=== PATIENT | male | born 1995 | race Caucasian/White ===

== ENCOUNTER 2017-08-30 12:32 | Inpatient (IN) | payer MEDICAID, SELFPAY ==
[2017-08-30 12:58] VITALS: BP 122/68; PULSE 89; RESP 16; TEMP 35.8; O2SAT 98
[2017-08-30 13:00] VITALS: BMI 24.1; BMI 24.5
--- NOTE | 2017-08-30 13:31 | NURSING ---
AWAITING ORDERS FROM DR BOWER WHO IS ADMITTING HOSPITALIST PT GIVEN MILLY, SHELIA AND ENCOURAGED TO ORDER FOOD FOR LUNCH PT IS A&O X3
--- NOTE | 2017-08-30 13:34 | HP.PCM_ITS ---
Problem List (1) Heroin addiction Status: Chronic (2) Opiate withdrawal Status: Acute (3) Hypercalcemia Status: Chronic (4) Cigarette smoker Status: Chronic History of Present Illness Date of Admission: 08/30/17 Chief Complaint: sweating, nausea, restlessness The patient is a 22 year old M with a past medical history of intravenous heroin use who presented to the [facility] office at [facility] on 08/30/2017 requesting inpatient admission for acute opiate withdrawal. He states his last dose of heroin was on 08/29/2017 at approximately 11 AM. He uses 1-1.5 GM IV daily. He denies any hx of Hepatitis. Has been to detox twice in the past. The most recent was at [facility] in 2017. He is living with his parents. He tells me that he is planning on attending an inpt program at [place]. He is having restlessness, Nausea and abdominal cramping. He is being admitted to the hospital for medical stabilization for withdrawal from Heroin. Past Medical History Past Medical History (Chronic Problems): Chronic Problems Thyroid nodule (Chronic) Hyperthyroidism (Chronic) Heroin addiction (Chronic) Hypercalcemia (Chronic) Cigarette smoker (Chronic) Allergies quetiapine [From Seroquel] Adverse Reaction (Verified 08/30/17 12:54) Other restless legs Home Medications: Ambulatory Orders Medication Instructions Recorded Cinacalcet HCl [Sensipar] 30 mg PO BIDCM #60 tab 09/02/17 Ergocalciferol [Vitamin D] 50,000 unit PO Q7D #12 cap 09/02/17 Surgical History: noncontributory Psychiatric History: No pertinent psych hx Lives: With Family Smoking Status: Current some day smoker Tobacco Use: Cigarettes - 1-2 daily Alcohol: Occasional Drugs: Heroin - *Family History Maternal History Items: - - mother has a hx of thyroid disease and drug addiction Paternal History Items: - - father with a hx of drug abuse Review of Systems Constitutional: Reports: Anorexia. Denies: Chills Eyes: Denies: Blurred vision HEENT: Denies: Head Aches, Sinus Congestion, Sinus Drainage Cardiovascular: Denies: Chest Pain, Palpitations Respiratory: Denies: Cough, Shortness of breath at rest, Sputum production Gastrointestinal: Reports: Nausea, - - dry heaves. Denies: Abdominal Pain, Constipation, Diarrhea, Vomiting Genitourinary: Denies: Dysuria Musculoskeletal: Denies: Joint Pain, Joint Tenderness Skin: Reports: - - multiple track kelley....none appear to be infected. Denies: Jaundice, Rash, Wounds Neurological: Denies: Numbness, Tingling, Focal weakness Psychiatric: Denies: Anxiety, Depression, Homicidal Ideations, Suicidal Ideations Endocrine: Denies: Change in Body Habitus, Heat/ Cold Intolerance, Hx of Thyroiditis Hematologic/ Lymphatic: Denies: Hx of blood clot VTE Information - Inpt Only VTE Present on Admission: No VTE Mechan Device Prophylaxis: None VTE Pharm Prophylaxis ordered?: No Reason prophylaxis not ordered:: Treatment Not Indicated - Physical Exam General: Alert, Oriented x3, Cooperative, No apparent distress, Well developed, Well nourished, - - does not make good eye contact HEENT: Atraumatic, PERRLA, EOMI Oral: Moist Mucosa, No Gingival or Mucosal Lesions/ Ulcerations Neck: Supple, No JVD, Trachea Midline, Thyroid Normal Size and Texture Lungs: Clear to auscultation Cardiovascular: Regular rate, Regular Rhythm, Normal S1, Normal S2, No murmurs, No Ectopic Activity, No Gallop Abdomen: Bowel Sounds Present, Soft, Non Tender, Non-Distended Extremities: No clubbing, No cyanosis, No edema Skin: No rashes, - - no evidence of cellulitis of the multiple track kelley Musculoskeletal: No Muscle Wasting Neurological: Cranial nerves II-XII grossly intact, Neuro grossly intact, - - no hypereflexia Psych/Mental Status: Appropriate, Flat Affect Vital Signs Temp Pulse Resp BP Pulse Ox 96.5 F L 89 16 122/68 H 98 08/30/17 12:58 08/30/17 12:58 08/30/17 12:58 08/30/17 12:58 08/30/17 12:58 Oxygen Delivery Method Room Air Weight: 173 lb Body Mass Index (BMI) 24.1 Assessment/Plan Impressions 1. acute opiate withdrawal 2. Hypercalcemia - has never been worked up 3. occasional cigarette smoker The [facility] protocol for acute withdrawal from opiates has been initiated. Check a PTH, TSH, 24 hour urine calcium and a 25 hydroxy vitamin D level. CMP, CBC, hepatitis panel, HIV and urine tox screen
[2017-08-30 14:00] VITALS: PULSE 88; RESP 20; TEMP 36.7
[2017-08-30 14:33] LABS: Absolute Lymphocyte Count 1.49 X10^3/ul (0.83-4.51); Absolute Neutrophil Count 6.3 X10^3/uL (2.0-7.7); Basophil# 0.03 X10^3/uL; Basophil% 0.4 % (0-1); Eosinophil# 0.06 X10^3/uL; Eosinophils% 0.7 % (0-5); Hematocrit 46.1 % (40-54); Hemoglobin 15.9 g/dl (13.0-16.5); Lymphocyte # 1.49 X10^3/ul (4.0); Mean Corp Hgb Conc 34.5 g/gl (32-36); Mean Corpuscular Hgb 28.7 pg (27.0-32.0); Mean Corpuscular Volume 83.2 fL (80-94); Mean Platelet Vol. 9.5 fl (6.2-12.0); Monocyte# 0.33 X10^3/uL; Neutrophil # 6.33 X10^3/uL (2.7-7.7); Neutrophil % 76.5 % (47-70); Platelet Count 275 K/mm3 (150-450); RBC Distribution Width CV 13.9 % (11.6-14.6); RBC Distribution Width SD 42.4 fl (35.1-43.9); Red Blood Count 5.54 M/mm3 (4.6-6.2); White Blood Count 8.3 K/mm3 (4.4-11.0)
[2017-08-30] MEDS: cloNIDine HCl 0.1 MG Tablet PO ×2 (14:41→18:47)
[2017-08-30] MEDS: Buprenorphine HCl 2 MG TAB.SUBL SL ×2 (14:41→22:19)
[2017-08-30] MEDS: Dicyclomine 10 MG Capsule 20 MG PO (14:41)
[2017-08-30 14:42] LABS: POSITIVE COUNT NO; POSITIVE DIFFERENTIAL NO; POSITIVE MORPHOLOGY NO
[2017-08-30 15:29] LABS: ALB/GLOB Ratio 0.9 RATIO (0.9-2.4); AST(SGOT) 20 U/L (15-37); Alanine Aminotransfer ALT/SGPT 39 U/L (16-61); Alkaline Phosphatase 118 U/L (45-117); BUN 10 mg/dL (7-18); BUN/Creat Ratio 11.3 RATIO (10-20); Calcium,Total 12.7 mg/dL (8.5-10.1); Chloride 104 mmol/L (98-107); Creatinine, Serum 0.88 mg/dL (0.70-1.30); EST Glomerular Filtration Rate 114 mL/min (>60); Est Glom Filt Rate - Afr Amer 138 mL/min (>60); Estimated Creatinine Clearance 140.24 ml/min; Globulin 4.6 g/dL (2.2-4.2); Glucose 110 mg/dL (74-106); Potassium 4.4 mmol/L (3.5-5.1); Protein, Total 8.6 g/dL (6.4-8.2); Sodium Level 136 mmol/L (136-145)
[2017-08-30 15:30] LABS: Alcohol, Blood (Medical)-Serum < 3.0 mg/dL; Anion Gap 8 (5-15)
--- NOTE | 2017-08-30 15:35 | CHAPLAIN ---
Type of Pastoral Visit _x__ Initial Visit ___ Follow-up Visit ___ On-call Visit ___ General Patient Visit ___ Spiritual Assessment ___ Family Conference ___ Bereavement ___ Rapid Response ___ Code Blue ___ Other (describe below) Pastoral Care Referral From _x__ Patient ___ Family ___ Nurse ___ Physician ___ Rubber Cutter ___ Safety Deposit Clerk ___ Other (describe below) Sacrament/Intervention _x__ Active listening ___ Anointing ___ Restorationist ___ Bereavement ___ Communion ___ Suzy exploration ___ _x__ Life review _x__ Prayer ___ Reconciliation ___ Sacrament of Sick _x__ Supportive presence ___ Wedding ___ Other (describe below) Pastoral Comments parents of patient have been admitted here in previous months and also for addictions; have met with parents during their admission; pt says that he needs to get clean but worries that he won't be able to stay clean; as we talked, pt had low affect until we talked about his girlfriend; pt become very tearful at mention of girlfriend who is in rehab now for the next eight months; pt used to have a job that he loved but is no longer working; pt welcomes visits from campus aide
[2017-08-30 16:02] LABS: HIV - WCH Non-Reactive (Nonreactive)
--- NOTE | 2017-08-30 16:47 | NURSING ---
DR BOWER MADE AWARE OF ELEVATED CALCIUM LEVEL
--- NOTE | 2017-08-30 17:10 | RAD_ITS ---
STUDY: X-RAY CHEST REASON FOR EXAM: Male, 22 years old. Hypercalcemia. TECHNIQUE: PA and lateral chest. COMPARISON: None. FINDINGS: The lungs are clear and expanded. There is no demonstrated pleural abnormality. Scattered calcifications right lung apex. No pneumothorax. Normal size heart. Normal mediastinum and marbin. Normal visualized pulmonary arteries. Normal visualized aortic arch and descending thoracic aorta. Normal visualized thoracic spine. Normal visualized ribs, clavicles, and shoulders. There is no demonstrated abnormality of the visualized soft tissue structures of the upper abdomen. RAD/Chest PA and Lateral IMPRESSION: No acute cardiopulmonary disease. Scattered calcifications right lung apex which may represent old granulomatous disease. Electronically Signed: Javed Herrera MD at 3:19 EST , Service support ,
[2017-08-30 17:17] LABS: PTHIN 162.1 pg/mL (18.4-80.1)
--- NOTE | 2017-08-30 17:20 | NURSING ---
PT TO X RAY BY [facility]
--- NOTE | 2017-08-30 17:34 | NURSING ---
RFX VIA [facility]
[2017-08-30 17:59] LABS: Thyroid Stim Hormone (TSH) 0.25 uIU/mL (0.358-3.74)
[2017-08-30 18:00] VITALS: BP 120/68; PULSE 73; RESP 18; TEMP 36.7; O2SAT 99
[2017-08-30] MEDS: Acetaminophen 500 MG Tablet PO (18:47)
[2017-08-30] MEDS: Ibuprofen 600 MG Tablet PO (18:47)
[2017-08-30] MEDS: Ondansetron ODT 4 MG Tablet PO (18:48)
[2017-08-30] MEDS: Methocarbamol 750 MG Tablet PO (18:48)
[2017-08-30 22:18] VITALS: BP 98/45; PULSE 74; RESP 16; TEMP 36.7
[2017-08-30] MEDS: traZODone 50 MG Tablet PO (22:19)
[2017-08-31 02:08] VITALS: BP 112/55; PULSE 63; RESP 16; TEMP 36.5
[2017-08-31 06:01] VITALS: BP 103/57; PULSE 54; RESP 16; TEMP 36.2
[2017-08-31] MEDS: Buprenorphine HCl 2 MG TAB.SUBL SL ×3 (06:03→22:42)
[2017-08-31 10:00] VITALS: BP 100/53; PULSE 73; RESP 18; TEMP 36.8
[2017-08-31] MEDS: Folic Acid 1 MG Tablet PO (10:07)
[2017-08-31] MEDS: cloNIDine HCl 0.1 MG Tablet PO (10:07)
[2017-08-31] MEDS: Pramipexole Di-HCl 0.25 MG Tablet PO (10:07)
[2017-08-31] MEDS: Multivitamins,Ther W-Minerals Tablet 1 TABLET PO (10:08)
[2017-08-31] MEDS: Thiamine Hydrochloride 100 MG Tablet PO (10:08)
[2017-08-31 14:00] VITALS: BP 104/52; PULSE 46; RESP 18; TEMP 36.6
--- NOTE | 2017-08-31 15:57 | PN_ITS ---
Patient Problems: Active and Suspected Problems Opiate withdrawal (Acute) Subjective: Patient is afebrile with stable vital signs. No complaints today Looks comfortable. Feeling tired but no nausea, vomiting, abdominal pain, diarrhea. Denies restless leg. - Physical Exam General: Alert, Oriented x3, Cooperative, No apparent distress, Well developed, Well nourished HEENT: Atraumatic, Normocephalic Oral: Moist Mucosa, No Gingival or Mucosal Lesions/ Ulcerations Lungs: Clear to auscultation Cardiovascular: Regular rate, Regular Rhythm, Normal S1, Normal S2, No murmurs, No Ectopic Activity, No Gallop Abdomen: Bowel Sounds Present, Soft, Non Tender, Non-Distended Extremities: No clubbing, No cyanosis, No edema, Capillary Refill Less than 3 Seconds Neurological: Cranial nerves II-XII grossly intact, Neuro grossly intact Psych/Mental Status: Normal Affect, Appropriate Vital Signs Temp Pulse Resp BP Pulse Ox 97.8 F 46 L 18 104/52 L 99 08/31/17 14:00 08/31/17 14:00 08/31/17 14:00 08/31/17 14:00 08/30/17 18:00 Oxygen Delivery Method Room Air Weight: 172 lb 15.983 oz Body Mass Index (BMI) 24.1 Laboratory Tests Past 24 Hrs 08/30/17 08/30/17 08/30/17 14:15 14:15 14:15 TSH 0.25 L PTH Intact 162.1 H HIV 1&2 Antibody Non-Reactive Assessment/Plan Active and Suspected Problems Opiate withdrawal (Acute) Impressions 1. acute opiate withdrawal 2. Hypercalcemia due to hyperparathyroidism 3. low TSH - possible coexisting hyperthyroidism 4. occasional cigarette smoker Check a T4 and a T3 will need a referral to an coal deliverer for W/U for hyperthyroidism continue the [facility] protocol for opiate withdrawal. Code Visit Inpatient E&M: 57862 Subs Hosp L2
[2017-08-31 18:00] VITALS: BP 111/62; PULSE 55; RESP 16; TEMP 36.7
[2017-08-31 22:39] VITALS: BP 109/48; PULSE 66; RESP 16; TEMP 36.3; O2SAT 100
[2017-08-31] MEDS: traZODone 50 MG Tablet PO (22:42)
[2017-08-31 23:11] LABS: Anion Gap 5 (5-15); BUN 14 mg/dL (7-18); BUN/Creat Ratio 13.9 RATIO (10-20); Calcium,Total 13.3 mg/dL (8.5-10.1); Chloride 104 mmol/L (98-107); Creatinine, Serum 1.01 mg/dL (0.70-1.30); EST Glomerular Filtration Rate 98 mL/min (>60); Est Glom Filt Rate - Afr Amer 119 mL/min (>60); Estimated Creatinine Clearance 122.19 ml/min; Free T3 2.5 pg/mL (2.18-3.98); Glucose 103 mg/dL (74-106); Potassium 4.5 mmol/L (3.5-5.1); Sodium Level 137 mmol/L (136-145); T4 Free Direct 1.61 ng/dL (0.76-1.46)
[2017-09-01] VITALS (9 sets, daily range): BP systolic 99–122; BP diastolic 44–58; PULSE 48–67; RESP 16; TEMP 36.3–36.8; O2SAT 98–100
[2017-09-01] MEDS: Buprenorphine HCl 2 MG TAB.SUBL SL ×2 (06:27→18:07)
--- NOTE | 2017-09-01 09:34 | US_ITS ---
STUDY: THYROID ULTRASOUND REASON FOR EXAM: Male, 22 years old. Hyperthyroidism. TECHNIQUE: Ultrasound evaluation of the thyroid was performed with real-time and static stafford-scale imaging. COMPARISON: None. FINDINGS: RIGHT LOBE: The right lobe of the thyroid gland measures 4.8 cm x 1.7 cm x 1.3 cm. There is a homogeneous echotexture. There is a 7 mm x 7 mm x 6 mm hypoechoic solid nodule in the lower medial pole of the right lobe. LEFT LOBE: The left lobe of the thyroid gland measures 4.7 cm x 1.6 cm x 1.7 cm. There is a homogeneous echotexture. There is a 3 mm x 2 mm x 3 mm solid and cystic nodule in the midportion of the left lobe. ISTHMUS: The isthmus measures 2.0 mm. The regional lymph nodes are normal. US/Thyroid IMPRESSION: Subcentimeter nodules seen in both lobes. Electronically Signed: Eliot Wilson MD at 15:35 EST Tel [phone], Service support ,
--- NOTE | 2017-09-01 09:34 | US_ITS ---
STUDY: RENAL ULTRASOUND - COMPLETE REASON FOR EXAM: Male, 22 years old. Hypercalcemia. TECHNIQUE: Ultrasound evaluation of the kidneys was performed with real-time and static barba-scale imaging. COMPARISON: None. FINDINGS: RIGHT KIDNEY: Normal location of the right kidney, which is normal in size. The right kidney measures 10.3 cm x 5.5 cm x 5.2 cm. There is a normal cortex of the right kidney. The renal cortex measures 1.4 cm. There is no right renal mass or cyst. A small nonobstructive right intrarenal calculus is seen. There is no right hydronephrosis. DISTAL RIGHT URETER: There is non-visualization of the distal right ureter. There is no demonstrated right ureterovesical junction calculus. There is a visualized right ureteral jet. LEFT KIDNEY: Normal location of the left kidney, which is normal in size. The left kidney measures 10.8 cm x 5.2 cm x 4.7 cm. There is a normal cortex of the left kidney. The renal cortex measures 1.4 cm. There is no left renal mass or cyst. There are no left renal calculi. There is no left hydronephrosis. DISTAL LEFT URETER: There is non-visualization of the distal left ureter. There is no demonstrated left ureterovesical junction calculus. There is no demonstrated left ureteral jet. BLADDER: The distended urinary bladder has a volume of 245.4 ml. There is a normal wall thickness of the distended urinary bladder. There is no demonstrated mass within the urinary bladder. There are no demonstrated bladder calculi. US/Kidney and Bladder IMPRESSION: Small nonobstructive right intrarenal calculus. Electronically Signed: Eliot Wilson MD at 15:34 EST Tel [phone], Service support ,
[2017-09-01] MEDS: Thiamine Hydrochloride 100 MG Tablet PO (09:35)
[2017-09-01] MEDS: Folic Acid 1 MG Tablet PO (09:35)
[2017-09-01] MEDS: Multivitamins,Ther W-Minerals Tablet 1 TABLET PO (09:35)
[2017-09-01] MEDS: Cinacalcet HCl 30 MG Tablet PO ×2 (09:35→18:07)
[2017-09-01 13:03] LABS: Vitamin D,25 Hydroxy 7.4 ng/mL (19.95-100.01)
--- NOTE | 2017-09-01 17:03 | CHAPLAIN ---
Type of Pastoral Visit ___ Initial Visit _x__ Follow-up Visit ___ On-call Visit ___ General Patient Visit ___ Spiritual Assessment ___ Family Conference ___ Bereavement ___ Rapid Response ___ Code Blue ___ Other (describe below) Pastoral Care Referral From _x__ Patient ___ Family ___ Nurse ___ Physician ___ Avionics Systems Technician ___ Packaging Engineer ___ Other (describe below) Sacrament/Intervention _x__ Active listening ___ Anointing ___ Christian ___ Bereavement ___ Communion _x__ Suzy exploration ___ _x__ Life review _x__ Prayer ___ Reconciliation ___ Sacrament of Sick _x__ Supportive presence ___ Wedding ___ Other (describe below) Pastoral Comments
--- NOTE | 2017-09-01 20:14 | PN_ITS ---
Subjective: PTH and T4 are increased. Vit D level is low. AP was increased and this may be due to bone loss. He has a R intrarenal stone and he tells me that he has had severe flank pain and hematuria in the past. He has no complaints today. Thyroid US shows 1 solid nodule in each lobe He has no complaints today and he is appropriate and polite - Physical Exam General: Alert, Oriented x3, Cooperative, No apparent distress, Lethargic HEENT: Atraumatic Oral: Moist Mucosa, - - thyroid is not enlarged and I do not feel any nodules Neck: Supple, Negative Carotid Bruits, No Nodes Lungs: Clear to auscultation Cardiovascular: Regular rate, Regular Rhythm, Normal S1, Normal S2, No murmurs, No rub noted, No Gallop Abdomen: Bowel Sounds Present, Soft, Non Tender, Non-Distended Neurological: - - no tentany Psych/Mental Status: Normal Affect, Appropriate Vital Signs Temp Pulse Resp BP Pulse Ox 98.3 F 67 16 119/58 L 98 09/01/17 18:10 09/01/17 18:10 09/01/17 18:10 09/01/17 18:10 09/01/17 18:10 Oxygen Delivery Method Room Air Weight: 172 lb 15.983 oz Body Mass Index (BMI) 24.1 Laboratory Tests Past 24 Hrs 08/31/17 09/01/17 09/01/17 22:13 12:15 18:40 Sodium 137 Potassium 4.5 Chloride 104 Carbon Dioxide 28.0 Anion Gap 5 BUN 14 Creatinine 1.01 Estim Creat Clear Calc 122.19 Est GFR (MDRD) Af Amer 119 Est GFR (MDRD) Non-Af 98 BUN/Creatinine Ratio 13.9 Glucose 103 Calcium 13.3 H* Vitamin D 25-Hydroxy 7.4 L Free T4 1.61 H Free T3 pg/dL 2.5 Urine Opiates Screen Pending Urine Methadone Screen Pending Ur Barbiturates Screen Pending Ur Phencyclidine Scrn Pending Ur Amphetamines Screen Pending U Methamphetamin-MDMA Pending U Benzodiazepines Scrn Pending Urine Cocaine Screen Pending U Cannabinoids Screen Pending Ur Drug Screen Comment Assessment/Plan Impressions 1. acute opiate withdrawal 2. Hypercalcemia - due to hyperparathyroidism 3. occasional cigarette smoker 4. Hyperthyroidism continue the [facility] protocol Thyroid nuclear scan Start Sensipar Encouraged increased water intake to prevent stone formation He could have MEN - denies any FH of endocrine abnormalities Discussed with the SW and she is going to assist with arranging follow up with a assistant professor of education in the immediate futue. I did inform him that there are significant neuropsychiatric consequences with both hyperthyroidism and hyperparathyroidism and this conceivably sabotage his efforts to get clean and stay clean. I strongly encouraged him to follow up and have this treated. Code Visit Inpatient E&M: 40678 Subs Hosp L2
[2017-09-01 20:42] LABS: Amphetamine Urine VISTA POSITIVE (<1000 ng/mL); Barbiturate Urine VISTA NEGATIVE (< 200 ng/mL); Benzodiazepine Urine VISTA NEGATIVE (< 200 ng/mL); Cocaine Urine VISTA NEGATIVE (< 300 ng/mL); Ecstacy Urine VISTA POSITIVE (< 500 ng/mL); Methadone Urine VISTA NEGATIVE (< 300 ng/mL); PCP Urine VISTA NEGATIVE (< 25 ng/mL); THC Urine VISTA NEGATIVE (< 50 ng/mL); Vista UDS pH Range 6
[2017-09-01] MEDS: traZODone 50 MG Tablet PO (22:39)
--- NOTE | 2017-09-02 05:55 | NM_ITS ---
CLINICAL: 22-year-old male with reported history of clinical hyperparathyroidism. 99m Tc SESTAMIBI DUAL PHASE PARATHYROID SCINTIGRAPHY COMPARISON: Thyroid ultrasound report 09/01/2017 FINDINGS: Following the intravenous administration of 23.6 mCi of 99m Tc sestamibi, image acquisitions of the anterior neck at approximately 15 minutes and 2.0 hours post radiopharmaceutical provision reveal: 1. Immediate static blood pool acquisitions demonstrate distribution of the radiopharmaceutical in the left-right thyroid colloid most accentuated in the and/or adjacent to the inferior pole of the right thyroid bed. 2. Delayed images depict persistent tracer concentration noted in the region of the inferior pole of the right thyroid bed with near complete washout of the radiopharmaceutical otherwise noted in the remaining previously defined thyroid colloid. NM/Parathyroid Scan IMPRESSION: 1. ABNORMAL 99m Tc SESTAMIBI PARATHYROID IMAGING DUAL PHASE EXAMINATION. 2. There is evidence of an apparent parathyroid adenoma involving the inferior pole of the right thyroid bed. Electronically Signed: Valentin Nance DO at 12:36 EST Tel , Service support ,
[2017-09-02 06:23] VITALS: BP 103/48; PULSE 57; RESP 16; TEMP 36.6
[2017-09-02] MEDS: Buprenorphine HCl 2 MG TAB.SUBL SL (06:24)
--- NOTE | 2017-09-02 08:48 | CASEMGMT ---
Addendum entered by Marina Covarrubias 09/02/17 10:23: As per Ashley estrella/Wallace Martin, pt does not have a ride to take him to the endocrinology appt, the treatment program would need to take him, so an appt needs made closer to [place] where pt is going. SW looked up physicians closer to [place], the closest doctor is 35 miles away. Appt made for tomorrow, Ashley checked w/the treatment facility([facility]), they can take pt tomorrow. Appt information will be included in pt's discharge instructions. MARY CARMEN Paulson, BROOM MACHINE OPERATOR Original Note: Physician asked SW to make appt for pt to see assembly repairer. SW printed list(2 providers) of endocrinologists near where pt lives that take his insurance. SW spoke w/pt this morning. Pt is going to an inpt program in [place]. We discussed where to have him see an assembly repairer, pt in agreement it makes more sense to see one near where he lives to get established, states he should be able to get a ride to the appt. Pt states the provider in [place] is closer to home. [place] will make appt and SW will give pt the information. MARY CARMEN Paulson, BROOM MACHINE OPERATOR
[2017-09-02 10:00] VITALS: RESP 16
--- NOTE | 2017-09-02 10:05 | PCM.DC ---
- Discharge Diagnoses Current Active Problems: Current Active and Chronic Problems Heroin addiction (Chronic) Opiate withdrawal (Acute) Hypercalcemia (Chronic) Cigarette smoker (Chronic) You will use the following diet at home:: Other - avoid foods containing calcium...any dairy. Your food should be the consistency of: Regular Your liquids should be the consistency of: Regular/Thin Discharge Activity: Return to Normal Activity Call your doctor if you observe: Fever of 101 or Higher, - - blood in the urine, severe flank pain Additional Instructions: 1. you have an overactive thyroid gland and an overactive parathyroid gland. the parathyroid gland controls calcium metabolism and this is why the calcium is always high. A high calcium causes bone loss and also kidney stones. This MUST be treated or you will develop osteoporosis. you will also develop more kidney stones. There is a stone in the the right kidney....currently this is not causing a problem. You need to see an Diversified Crops Farmer. This is a doctor who specializes in treating problems with glands. The parathyroid and the thyroid gland fall under this specialty. You are going to take a drug called Cinacalcet twice a day....this will help bring the calcium down in the blood. Drink a lot of water and stay well hydrated.....this will help prevent kidney stones. You have 2 nodules in the thyroid gland and these may need biopsied.....the patent leather sorter will discuss this with you and arrange a biopsy if indicated. 2. You vitamin D level is low and I have started you on a supplement that you will take once a week. 3. Good luck to you Rohit. Please keep in mind that the high calcium can cause neuropsychiatrice problems and this certainly can hinder your efforts to get clean. Make sure to see the patent leather sorter. It was a pleasure to take care of you and I hope you beat this. Allergies/Adverse Reactions: Allergies quetiapine [From Seroquel] Adverse Reaction (Verified 08/30/17 12:54) Other restless legs Medications to take at Discharge Cinacalcet HCl [Sensipar] 30 mg PO BIDCM #60 tab 09/02/17 Ergocalciferol [Vitamin D] 50,000 unit PO Q7D #12 cap 09/02/17 The following prescriptions were given: Ergocalciferol [Vitamin D] 50,000 unit PO Q7D #12 cap Cinacalcet HCl [Sensipar] 30 mg PO BIDCM #60 tab Please Follow Up With: patent leather sorter Proposed Discharge Date: 09/02/17
--- NOTE | 2017-09-02 10:21 | DCINST_ITS ---
- Discharge Diagnoses Current Active Problems: Current Active and Chronic Problems Heroin addiction (Chronic) Opiate withdrawal (Acute) Hypercalcemia (Chronic) Cigarette smoker (Chronic) You will use the following diet at home:: Other - avoid foods containing calcium...any dairy. Your food should be the consistency of: Regular Your liquids should be the consistency of: Regular/Thin Discharge Activity: Return to Normal Activity Call your doctor if you observe: Fever of 101 or Higher, - - blood in the urine , severe flank pain Additional Instructions: 1. you have an overactive thyroid gland and an overactive parathyroid gland. the parathyroid gland controls calcium metabolism and this is why the calcium is always high. A high calcium causes bone loss and also kidney stones. This MUST be treated or you will develop osteoporosis. you will also develop more kidney stones. There is a stone in the the right kidney....currently this is not causing a problem. You need to see an Platform Material Handler Manager. This is a doctor who specializes in treating problems with glands. The parathyroid and the thyroid gland fall under this specialty. You are going to take a drug called Cinacalcet twice a day....this will help bring the calcium down in the blood. Drink a lot of water and stay well hydrated.....this will help prevent kidney stones. You have 2 nodules in the thyroid gland and these may need biopsied.....the service associate will discuss this with you and arrange a biopsy if indicated. 2. You vitamin D level is low and I have started you on a supplement that you will take once a week. 3. Good luck to you Rohit. Please keep in mind that the high calcium can cause neuropsychiatrice problems and this certainly can hinder your efforts to get clean. Make sure to see the service associate. It was a pleasure to take care of you and I hope you beat this. Allergies/Adverse Reactions: Allergies quetiapine [From Seroquel] Adverse Reaction (Verified 08/30/17 12:54) Other restless legs Medications to take at Discharge Cinacalcet HCl [Sensipar] 30 mg PO BIDCM #60 tab 09/02/17 Ergocalciferol [Vitamin D] 50,000 unit PO Q7D #12 cap 09/02/17 The following prescriptions were given: Ergocalciferol [Vitamin D] 50,000 unit PO Q7D #12 cap Cinacalcet HCl [Sensipar] 30 mg PO BIDCM #60 tab Please Follow Up With: service associate Proposed Discharge Date: 09/02/17
[2017-09-02] MEDS: Thiamine Hydrochloride 100 MG Tablet PO (11:03)
[2017-09-02] MEDS: Multivitamins,Ther W-Minerals Tablet 1 TABLET PO (11:03)
[2017-09-02] MEDS: Folic Acid 1 MG Tablet PO (11:04)
[2017-09-02] MEDS: Cinacalcet HCl 30 MG Tablet PO (11:04)
[2017-09-02 12:29] VITALS: BP 101/58; PULSE 57; RESP 16; TEMP 36.5; O2SAT 99
--- NOTE | 2017-09-02 14:59 | PCM.DC.SUM ---
Discharge Date and Diagnosis - Problem List Patient Problems: Active and Suspected Problems Opiate withdrawal (Acute) Date of Admission: 08/30/17 Date of Discharge: 09/02/17 - Primary Discharge Diagnosis Active and Suspected Problems Opiate withdrawal (Acute) - Secondary Discharge Diagnosis Chronic Problems Thyroid nodules (Chronic) hypodense with 1 nodule in each lobe of the thyroid Hyperthyroidism (Chronic) Hyperparathyroidism Low vitamin D level Heroin addiction (Chronic) Hypercalcemia (Chronic) Cigarette smoker (Chronic) Parathyroid adenoma involving the inferior pole of the right thyroid bed Hospital Course and Treatment Imaging Results: Clinical Impression(s) from Imaging Studies Chest X-Ray 08/30/17 17:10 IMPRESSION: No acute cardiopulmonary disease. Scattered calcifications right lung apex which may represent old granulomatous disease. Electronically Signed: Javed Herrera MD at 3:19 EST , Service support , Renal Ultrasound 09/01/17 09:34 IMPRESSION: Small nonobstructive right intrarenal calculus. Electronically Signed: Eliot Wilson MD at 15:34 EST Tel [phone], Service support , Thyroid Ultrasound 09/01/17 09:34 IMPRESSION: Subcentimeter nodules seen in both lobes. Electronically Signed: Eliot Wilson MD at 15:35 EST Tel [phone], Service support , Parathyroid Scan Nuclear Medicine 09/02/17 05:55 IMPRESSION: 1. ABNORMAL 99m Tc SESTAMIBI PARATHYROID IMAGING DUAL PHASE EXAMINATION. 2. There is evidence of an apparent parathyroid adenoma involving the inferior pole of the right thyroid bed. Electronically Signed: Valentin Nance DO at 12:36 EST Tel , Service support , none Operations: None Procedures: None Summary of Care Provided: The patient is a 22 year old M with a past medical history of intravenous heroin use who presented to the [facility] at [facility] on 08/30/2017 requesting inpatient admission for acute opiate withdrawal. He stated his last dose of heroin was on 08/29/2017 at approximately 11 AM. He uses 1-1.5 GM IV daily. He denied any hx of Hepatitis. He has been to detox twice in the past but has never gone to a residential drug rehab facility The most recent admission for acute was at [facility] in 2017. He has been living with his parents. He was admitted to the [facility] for medical stabilization for acute opiate withdrawal. Routine labs were ordered and his CBC was unremarkable. CMP revealed an elevated calcium at 12.7 with an albumin of 4.0. He did tell me that he has been diagnosed with hypercalcemia in the past but no testing is ever been done. TSH was obtained and was low at 0.25 and T4 was high at 1.61. PTH was elevated at 162.1. Vitamin D level was low at 7.4. Alkaline phosphatase was mildly increased at 118. He has had kidney stones in the past and a renal US shows a intrarenal stone in the right kidney. A thyroid US was obtained and showed a 7 mm x 7 mm x 6 mm hypoechoic solid nodule in the lower medial pole of the right lobe. There was also a 3 mm x 2 mm x 3 mm solid and cystic nodule in the midportion of the left lobe. Regional lymph nodes were normal. The parathyroid nuclear scan was done and showed evidence of an apparent parathyroid adenoma involving the inferior pole of the right thyroid bed. Delayed images depicted persistent tracer concentration in the region of the inferior pole of the right thyroid bed with near complete washout of the radiopharmaceutical otherwise noted in the remaining thyroid colloid. He was started on a vitamin D supplement and Sensipar but, his insurance will not pay for Sensipar and it cost $2,000 dollars a month. He will continue with vitamin D 50,000 units p.o. weekly. He was given a lab requisition to obtain a 24-hour urine calcium post discharge. An appointment was made for him to follow-up with Dr. Apolonia Burnett from endocrinology. He was instructed to avoid dairy products and to maintain good hydration to decrease the risk of recurrent kidney stones. He was discharged on 09/02 in stable condition to a residential drug rehab facility. This note was generated with [employer] dictation software. It may contain incorrect words, spelling, and punctuation that were not noted in checking the note before signing. Discharge Activity: Return to Normal Activity Call your doctor if you observe: Fever of 101 or Higher, - - blood in the urine, severe flank pain Home Medications: Medications to take at Discharge Cinacalcet HCl [Sensipar] 30 mg PO BIDCM #60 tab 09/02/17 Ergocalciferol [Vitamin D] 50,000 unit PO Q7D #12 cap 09/02/17 Following Prescrptions Were Given to Patient: Ergocalciferol [Vitamin D] 50,000 unit PO Q7D #12 cap Cinacalcet HCl [Sensipar] 30 mg PO BIDCM #60 tab Other Amb Orders: Calcium, Urine 24HR Time Frame: 1 Day, Location: None Selected Please Follow Up With: Apolonia Burnett Disposition: Inpt Rehab Unit/Facility Minutes spent on discharge:: 40 Patient Condition:: Stable Meaningful Use Info Meaningful Use Diagnoses (Choose all that apply): None applicable Code Visit Inpatient E&M: 59551 Disch Hosp
--- NOTE | 2017-09-02 15:17 | DS.PCM_ITS ---
Discharge Date and Diagnosis - Problem List Patient Problems: Active and Suspected Problems Opiate withdrawal (Acute) Date of Admission: 08/30/17 Date of Discharge: 09/02/17 - Primary Discharge Diagnosis Active and Suspected Problems Opiate withdrawal (Acute) - Secondary Discharge Diagnosis Chronic Problems Thyroid nodules (Chronic) hypodense with 1 nodule in each lobe of the thyroid Hyperthyroidism (Chronic) Hyperparathyroidism Low vitamin D level Heroin addiction (Chronic) Hypercalcemia (Chronic) Cigarette smoker (Chronic) Parathyroid adenoma involving the inferior pole of the right thyroid bed Hospital Course and Treatment Imaging Results: Clinical Impression(s) from Imaging Studies Chest X-Ray 08/30/17 17:10 IMPRESSION: No acute cardiopulmonary disease. Scattered calcifications right lung apex which may represent old granulomatous disease. Electronically Signed: Javed Herrera MD at 3:19 EST , Service support , Renal Ultrasound 09/01/17 09:34 IMPRESSION: Small nonobstructive right intrarenal calculus. Electronically Signed: Eliot Wilson MD at 15:34 EST Tel [phone], Service support , Thyroid Ultrasound 09/01/17 09:34 IMPRESSION: Subcentimeter nodules seen in both lobes. Electronically Signed: Eliot Wilson MD at 15:35 EST Tel [phone], Service support , Parathyroid Scan Nuclear Medicine 09/02/17 05:55 IMPRESSION: 1. ABNORMAL 99m Tc SESTAMIBI PARATHYROID IMAGING DUAL PHASE EXAMINATION. 2. There is evidence of an apparent parathyroid adenoma involving the inferior pole of the right thyroid bed. Electronically Signed: Valentin Nance DO at 12:36 EST Tel , Service support , none Operations: None Procedures: None Summary of Care Provided: The patient is a 22 year old M with a past medical history of intravenous heroin use who presented to the [facility] office at [facility] on 08/30/2017 requesting inpatient admission for acute opiate withdrawal. He stated his last dose of heroin was on 08/29/2017 at approximately 11 AM. He uses 1-1.5 GM IV daily. He denied any hx of Hepatitis. He has been to detox twice in the past but has never gone to a residential drug rehab facility The most recent admission for acute was at [facility] in 2017. He has been living with his parents. He was admitted to the [facility] for medical stabilization for acute opiate withdrawal. Routine labs were ordered and his CBC was unremarkable. CMP revealed an elevated calcium at 12.7 with an albumin of 4.0. He did tell me that he has been diagnosed with hypercalcemia in the past but no testing is ever been done. TSH was obtained and was low at 0.25 and T4 was high at 1.61. PTH was elevated at 162.1. Vitamin D level was low at 7.4. Alkaline phosphatase was mildly increased at 118. He has had kidney stones in the past and a renal US shows a intrarenal stone in the right kidney. A thyroid US was obtained and showed a 7 mm x 7 mm x 6 mm hypoechoic solid nodule in the lower medial pole of the right lobe. There was also a 3 mm x 2 mm x 3 mm solid and cystic nodule in the midportion of the left lobe. Regional lymph nodes were normal. The parathyroid nuclear scan was done and showed evidence of an apparent parathyroid adenoma involving the inferior pole of the right thyroid bed. Delayed images depicted persistent tracer concentration in the region of the inferior pole of the right thyroid bed with near complete washout of the radiopharmaceutical otherwise noted in the remaining thyroid colloid. He was started on a vitamin D supplement and Sensipar but, his insurance will not pay for Sensipar and it cost $2,000 dollars a month. He will continue with vitamin D 50,000 units p.o. weekly. He was given a lab requisition to obtain a 24-hour urine calcium post discharge. An appointment was made for him to follow-up with Dr. Apolonia Burnett from endocrinology. He was instructed to avoid dairy products and to maintain good hydration to decrease the risk of recurrent kidney stones. He was discharged on 09/02 in stable condition to a residential drug rehab facility. This note was generated with [employer] dictation software. It may contain incorrect words, spelling, and punctuation that were not noted in checking the note before signing. Discharge Activity: Return to Normal Activity Call your doctor if you observe: Fever of 101 or Higher, - - blood in the urine , severe flank pain Home Medications: Medications to take at Discharge Cinacalcet HCl [Sensipar] 30 mg PO BIDCM #60 tab 09/02/17 Ergocalciferol [Vitamin D] 50,000 unit PO Q7D #12 cap 09/02/17 Following Prescrptions Were Given to Patient: Ergocalciferol [Vitamin D] 50,000 unit PO Q7D #12 cap Cinacalcet HCl [Sensipar] 30 mg PO BIDCM #60 tab Other Amb Orders: Calcium, Urine 24HR Time Frame: 1 Day, Location: None Selected Please Follow Up With: Apolonia Burnett Disposition: Inpt Rehab Unit/Facility Minutes spent on discharge:: 40 Patient Condition:: Stable Meaningful Use Info Meaningful Use Diagnoses (Choose all that apply): None applicable Code Visit Inpatient E&M: 26808 Disch Hosp
[2017-09-03 08:10] LABS: HEPATITIS B SURFACE AG Negative (Negative); Hepatitis A AB, Total Negative (Negative); Hepatitis A IgM Antibody Negative (Negative); Hepatitis B Core AB IgM Negative (Negative); Hepatitis B Core Ab Total Positive (Negative); Hepatitis C Ab >11.0 s/co ratio (0.0-0.9)
[2017-09-03 10:20] LABS: Hep B Surface Antibodies Reactive (.)
[2017-09-03 14:07] LABS: Thyroid Peroxidase AB 16 IU/mL (0-34)
[2017-09-04 16:11] LABS: Thyroglobulin Antibody < 1.0 IU/mL (0.0-0.9)
== END 2017-09-02 15:35 | disposition intermediate care facility (04) | DRG 434 ==
PROVIDERS: Admitting Provider Internal Medicine; Visit Provider Internal Medicine
DX: F11.23 Opioid dependence with withdrawal (principal); E05.90 Thyrotoxicosis, unspecified without thyrotoxic crisis or storm; D35.1 Benign neoplasm of parathyroid gland; E21.3 Hyperparathyroidism, unspecified; F17.210 Nicotine dependence, cigarettes, uncomplicated; Z87.442 Personal history of urinary calculi; E04.2 Nontoxic multinodular goiter
CPT/HCPCS: 36415; 71046; 76536; 76770; 78070; 80048; 80053; 80307; 80320; 82306; 83970; 84439; 84443; 84481; 85025; 86376; 86703; 86704; 86705; 86706; 86708; 86709; 86800; 86803; 87340; 97802; 99406; A9500; G0480

== ENCOUNTER 2018-02-07 16:33 | Observation (INO) | payer MEDICAID, SELFPAY ==
--- NOTE | 2018-02-07 17:05 | PCM.HP.STD ---
Problem List (1) Opiate withdrawal Status: Acute History of Present Illness Date of Admission: 02/07/18 Chief Complaint: heroin withdrawal The patient is a 22 year old M with a history of opiate dependence and hypercalcemia. Admitted on the [facility] on 02/07/2018 for heroin withdrawal. He last used heroin yesterday around noon and uses about half grams daily. He has been using for about 4 years. He started using with friends and his whole family including his parents and siblings also use. He has been in detox about 4 times but relapsed afterwards. He is a third IV. He denies any fever or chills, any cough or chest pain, shortness of breath, any abdominal pain, any diarrhea vomiting. Review of systems otherwise negative. He has been admitted to be managed for opiate withdrawal on the [facility] protocol. [] Past Medical History Past Medical History (Chronic Problems): Chronic Problems Thyroid nodule (Chronic) Hyperthyroidism (Chronic) Heroin addiction (Chronic) Hypercalcemia (Chronic) Cigarette smoker (Chronic) Allergies quetiapine [From Seroquel] Adverse Reaction (Verified 08/30/17 12:54) Other restless legs Home Medications: Ambulatory Orders Medication Instructions Recorded Cinacalcet HCl [Sensipar] 30 mg PO BIDCM #60 tab 09/02/17 Ergocalciferol [Vitamin D] 50,000 unit PO Q7D #12 cap 09/02/17 Surgical History: noncontributory Psychiatric History: No pertinent psych hx Smoking Status: Current some day smoker Tobacco Use: Cigarettes Alcohol: None - *Family History Maternal History Items: - - mother has a hx of thyroid disease and drug addiction Paternal History Items: - - father with a hx of drug abuse Review of Systems Constitutional: Denies: Chills, Fever, Weight Change Eyes: Denies: Blurred vision HEENT: Denies: Head Aches, Sinus Congestion, Sinus Drainage Cardiovascular: Denies: Chest Pain, Chest Pressure, Light Headedness, Orthopnea, Palpitations, Paroxysmal Noc. Dyspnea, Syncope Respiratory: Denies: Cough, Shortness of breath at rest, Sputum production Gastrointestinal: Denies: Abdominal Pain, Nausea, Vomiting Genitourinary: Denies: Dysuria Musculoskeletal: Denies: Joint Pain, Joint Tenderness Skin: Denies: Rash, Wounds Neurological: Denies: Numbness, Tingling, Focal weakness Psychiatric: Denies: Anxiety, Depression, Homicidal Ideations, Suicidal Ideations Hematologic/ Lymphatic: Denies: Easy Bruising, Easy Bleeding VTE Information - Inpt Only VTE Present on Admission: No VTE Mechan Device Prophylaxis: SCD's VTE Pharm Prophylaxis ordered?: No - Physical Exam General: Alert, Oriented x3, Cooperative, No apparent distress HEENT: Atraumatic, PERRLA, EOMI, Normocephalic Oral: Moist Mucosa Neck: Supple, No JVD, Negative Carotid Bruits Lungs: Clear to auscultation, Normal air movement, No rhonchi, No wheeze Cardiovascular: Regular rate, Regular Rhythm, Normal S1, Normal S2, No murmurs Abdomen: Bowel Sounds Present, Soft, Non Tender, Non-Distended, No Hepato-splenomegaly Extremities: No edema, Capillary Refill Less than 3 Seconds Skin: - - Multiple track kelley of upper extremities. Musculoskeletal: No Tenderness to Palpation of Joints or Extremities Lymphatic: No Cervical, Supraclavicular, or Inguinal Adenopathy Neurological: Cranial nerves II-XII grossly intact Psych/Mental Status: Normal Affect, Appropriate, Alert and oriented to time, place, person, mood and affect Assessment/Plan All Active Problems Opiate withdrawal (Acute) 22-year-old male with a history of opiate dependence presenting for opiate detox 1. Heroin abuse Will admit to [facility] to on the [facility] Will start opiate withdrawal protocol with buprenorphine 2. Hyperparathyroidism History of hypercalcemia. PTH level was noted to be elevated about 162 on last admission, with calcium level of 13.2 in 09/05 On vitamin D and cinacalcet. Will check calcium level and check PTH level as he has not followed up on outpatient basis. parathyroid scan (10/03) showed evidence of parathyroid adenoma of the inferior pole of right thyroid bed. thyroid USG showed subcentimeter nodules in both lobes. renal USG showed small nonobstructive right intrarenal calculus per discharge summary (09/05), patient was started on vitamin D supplement and Sensipar, but his insurance wouldnt pay for sensipar. He was due to do a 24 hour urinary calcium level, but no evidence of this in the records. he was to continue Vitamin D 50,000 PO weekly. he was due to follow up with Dr Apolonia Burnett-endocrinology. considering his age (<50 years), he will benefit from parathyroidectomy. To follow up with PCP and inventory control coordinator upon discharge 3. Nicotine dependence: nicotine patch daily 4. Hepatitis C infection: Hep C antibody was positive (09/05). Will check hep C RNA quantity to see if she has an infection or antibodies are due to him clearing a Hep c infection DVT Prophylaxis: SCDs This note was generated with [employer] dictation software. It may contain incorrect words, spelling, and punctuation that were not noted in checking the note before signing. Code Visit Inpatient E&M: 85112 Init Hosp L3
--- NOTE | 2018-02-07 17:15 | HP.PCM_ITS ---
Problem List (1) Opiate withdrawal Status: Acute History of Present Illness Date of Admission: 02/07/18 Chief Complaint: heroin withdrawal The patient is a 22 year old M with a history of opiate dependence and hypercalcemia. Admitted on the [facility] on 02/07/2018 for heroin withdrawal. He last used heroin yesterday around noon and uses about half grams daily. He has been using for about 4 years. He started using with friends and his whole family including his parents and siblings also use. He has been in detox about 4 times but relapsed afterwards. He is a third IV. He denies any fever or chills, any cough or chest pain, shortness of breath, any abdominal pain, any diarrhea vomiting. Review of systems otherwise negative. He has been admitted to be managed for opiate withdrawal on the [facility] protocol. [] Past Medical History Past Medical History (Chronic Problems): Chronic Problems Thyroid nodule (Chronic) Hyperthyroidism (Chronic) Heroin addiction (Chronic) Hypercalcemia (Chronic) Cigarette smoker (Chronic) Allergies quetiapine [From Seroquel] Adverse Reaction (Verified 08/30/17 12:54) Other restless legs Home Medications: Ambulatory Orders Medication Instructions Recorded Cinacalcet HCl [Sensipar] 30 mg PO BIDCM #60 tab 09/02/17 Ergocalciferol [Vitamin D] 50,000 unit PO Q7D #12 cap 09/02/17 Surgical History: noncontributory Psychiatric History: No pertinent psych hx Smoking Status: Current some day smoker Tobacco Use: Cigarettes Alcohol: None - *Family History Maternal History Items: - - mother has a hx of thyroid disease and drug addiction Paternal History Items: - - father with a hx of drug abuse Review of Systems Constitutional: Denies: Chills, Fever, Weight Change Eyes: Denies: Blurred vision HEENT: Denies: Head Aches, Sinus Congestion, Sinus Drainage Cardiovascular: Denies: Chest Pain, Chest Pressure, Light Headedness, Orthopnea , Palpitations, Paroxysmal Noc. Dyspnea, Syncope Respiratory: Denies: Cough, Shortness of breath at rest, Sputum production Gastrointestinal: Denies: Abdominal Pain, Nausea, Vomiting Genitourinary: Denies: Dysuria Musculoskeletal: Denies: Joint Pain, Joint Tenderness Skin: Denies: Rash, Wounds Neurological: Denies: Numbness, Tingling, Focal weakness Psychiatric: Denies: Anxiety, Depression, Homicidal Ideations, Suicidal Ideations Hematologic/ Lymphatic: Denies: Easy Bruising, Easy Bleeding VTE Information - Inpt Only VTE Present on Admission: No VTE Mechan Device Prophylaxis: SCD's VTE Pharm Prophylaxis ordered?: No - Physical Exam General: Alert, Oriented x3, Cooperative, No apparent distress HEENT: Atraumatic, PERRLA, EOMI, Normocephalic Oral: Moist Mucosa Neck: Supple, No JVD, Negative Carotid Bruits Lungs: Clear to auscultation, Normal air movement, No rhonchi, No wheeze Cardiovascular: Regular rate, Regular Rhythm, Normal S1, Normal S2, No murmurs Abdomen: Bowel Sounds Present, Soft, Non Tender, Non-Distended, No Hepato- splenomegaly Extremities: No edema, Capillary Refill Less than 3 Seconds Skin: - - Multiple track kelley of upper extremities. Musculoskeletal: No Tenderness to Palpation of Joints or Extremities Lymphatic: No Cervical, Supraclavicular, or Inguinal Adenopathy Neurological: Cranial nerves II-XII grossly intact Psych/Mental Status: Normal Affect, Appropriate, Alert and oriented to time, place, person, mood and affect Assessment/Plan All Active Problems Opiate withdrawal (Acute) 22-year-old male with a history of opiate dependence presenting for opiate detox 1. Heroin abuse * Will admit to [facility] to on the [facility] * Will start opiate withdrawal protocol with buprenorphine * * 2. Hyperparathyroidism * History of hypercalcemia. PTH level was noted to be elevated about 162 on last admission, with calcium level of 13.2 in 09/05 * On vitamin D and cinacalcet. * Will check calcium level and check PTH level as he has not followed up on outpatient basis. * parathyroid scan (10/03) showed evidence of parathyroid adenoma of the inferior pole of right thyroid bed. thyroid USG showed subcentimeter nodules in both lobes. * renal USG showed small nonobstructive right intrarenal calculus * per discharge summary (09/05), patient was started on vitamin D supplement and Sensipar, but his insurance wouldnt pay for sensipar. He was due to do a 24 hour urinary calcium level, but no evidence of this in the records. he was to continue Vitamin D 50,000 PO weekly. he was due to follow up with Dr Apolonia Burnett-endocrinology. * considering his age (<50 years), he will benefit from parathyroidectomy. To follow up with PCP and exceptional student education teacher upon discharge * 3. Nicotine dependence: nicotine patch daily 4. Hepatitis C infection: * Hep C antibody was positive (09/05). * Will check hep C RNA quantity to see if she has an infection or antibodies are due to him clearing a Hep c infection DVT Prophylaxis: SCDs This note was generated with [employer] dictation software. It may contain incorrect words, spelling, and punctuation that were not noted in checking the note before signing. Code Visit Inpatient E&M: 13370 Init Hosp L3
[2018-02-07 17:44] VITALS: BP 123/71; PULSE 89; RESP 16; TEMP 36.8; O2SAT 100
[2018-02-07 17:53] VITALS: BMI 22.7
[2018-02-07 17:55] VITALS: BP 123/71; PULSE 89; RESP 16; TEMP 36.8
[2018-02-07 17:59] VITALS: BMI 22.8
[2018-02-07] MEDS: Pramipexole Di-HCl 0.25 MG Tablet PO (18:17)
[2018-02-07] MEDS: Buprenorphine HCl 2 MG TAB.SUBL 4 MG SL (18:17)
[2018-02-07 18:25] LABS: ALB/GLOB Ratio 0.7 RATIO (0.9-2.4); AST(SGOT) 21 U/L (15-37); Alanine Aminotransfer ALT/SGPT 34 U/L (16-61); Albumin, Serum 3.7 g/dL (3.2-5.0); Alkaline Phosphatase 120 U/L (45-117); Anion Gap 5 (5-15); BUN 12 mg/dL (7-18); BUN/Creat Ratio 14.2 RATIO (10-20); Chloride 105 mmol/L (98-107); Creatinine, Serum 0.84 mg/dL (0.70-1.30); EST Glomerular Filtration Rate 120 mL/min (>60); Est Glom Filt Rate - Afr Amer 145 mL/min (>60); Estimated Creatinine Clearance 144.38 ml/min; Glucose 82 mg/dL (74-106); Potassium 4.1 mmol/L (3.5-5.1); Protein, Total 8.7 g/dL (6.4-8.2); Sodium Level 134 mmol/L (136-145)
[2018-02-07 18:39] LABS: PTHIN 161.4 pg/mL (18.4-80.1)
[2018-02-07 19:37] VITALS: BP 105/69; PULSE 85; RESP 16; TEMP 36.6
[2018-02-07] MEDS: cloNIDine HCl 0.1 MG Tablet PO ×2 (19:42→22:51)
[2018-02-07] MEDS: Methocarbamol 750 MG Tablet PO (19:43)
[2018-02-07] MEDS: chlordiazePOXIDE 25 MG Capsule PO (19:43)
[2018-02-07] MEDS: hydrOXYzine PAM 25 MG Capsule 50 MG PO (20:54)
[2018-02-07 21:03] VITALS: PULSE 85; RESP 16; O2SAT 98
[2018-02-07] MEDS: traZODone 50 MG Tablet PO (21:57)
[2018-02-07] MEDS: Ondansetron ODT 4 MG Tablet PO (21:57)
[2018-02-07 22:49] VITALS: BP 128/76; PULSE 83; RESP 18; TEMP 36.5
[2018-02-07] MEDS: Haloperidol 5 MG Tablet PO (22:51)
[2018-02-07] MEDS: Dicyclomine 10 MG Capsule 20 MG PO (22:51)
[2018-02-07 23:58] LABS: Amphetamine Urine VISTA NEGATIVE (<1000 ng/mL); Barbiturate Urine VISTA NEGATIVE (< 200 ng/mL); Benzodiazepine Urine VISTA NEGATIVE (< 200 ng/mL); Cocaine Urine VISTA NEGATIVE (< 300 ng/mL); Ecstacy Urine VISTA NEGATIVE (< 500 ng/mL); Methadone Urine VISTA NEGATIVE (< 300 ng/mL); PCP Urine VISTA NEGATIVE (< 25 ng/mL); THC Urine VISTA NEGATIVE (< 50 ng/mL); Vista UDS pH Range 6
[2018-02-08 00:59] VITALS: BP 101/60; PULSE 69; RESP 16; TEMP 36.6
[2018-02-08] MEDS: Buprenorphine HCl 2 MG TAB.SUBL 4 MG SL (01:01)
[2018-02-08] MEDS: cloNIDine HCl 0.1 MG Tablet PO ×2 (01:01→03:40)
[2018-02-08] MEDS: chlordiazePOXIDE 25 MG Capsule PO (01:46)
[2018-02-08] MEDS: Methocarbamol 750 MG Tablet PO (01:46)
[2018-02-08] MEDS: hydrOXYzine PAM 25 MG Capsule 50 MG PO (03:40)
--- NOTE | 2018-02-08 03:40 | NURSING ---
Primary nurse at lunch, this nurse responded to call light. Patient restless, thrashing arms/legs in bed. (He was dramatically throwing arms/legs. He did not exhibit tremors or lack of fine motor skills, able to reach and hold med cup and operate cell phone) Only PRN medications due are Vistaril and Catapres. Vitals taken, meds given, but patient got up and began pacing in room and throwing blankets off of bed and said I just can't do this, can't you guys give me a shot, that worked last time I asked patient what medication they had given him previously and he said Toradol I explained that this was an antiinflammatory pain medication. While speaking with patient I sent a text to Dr. Cabrera. I offered to walk in hallway with patient. We made 2 laps in hallway. MD called and said he would only do 1 more x1 dose of haldol if the patient would like. The patient asked if this meant he was being kicked out. I explained that more PRNS would be coming due in the next few hours. Patient agreeable to x1 Haldol order and explained to patient the MD would not order more through the night. I offered to turn on music, fan or provided blankets/fresh bedding, patient refused. I encouraged patient to put phone away and to try relaxing exercises to promote sleep. I reported to Marielena, primary RN on situation. She will give Haldol.
[2018-02-08 03:41] VITALS: BP 139/92; PULSE 119; RESP 18; TEMP 36.6
[2018-02-08] MEDS: Haloperidol 5 MG Tablet PO (04:17)
--- NOTE | 2018-02-08 04:27 | NURSING ---
I had come up to see if pharmacy had sent the po Haldol for the patient. Kaylynn bland RN said to go in his room as she saw the patient take something from his bag and take it into the bathroom. I had Hang GRANDA come into the room with me. I knocked on the bathroom door and asked the patient what he was doing, he said 'I'm just putting on deodorant. I stepped closer to the bathroom and could smell cigarette smoke. I ask the patient if he had been smoking, because we had seen him take something into the bathroom. He said he had not been smoking, but went back into the bathroom and removed a washcloth and threw it into the trash right in front of me. I told him that the washcloths were not to be thrown out and picked it up and shook it out and cigarette butt fell out of the washcloth. 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 I told him that the patients on both sides of him have oxygen on and cigarettes and the manager games could cause a fire. He said he has no more cigarettes and told me I could search his bag (I did not search patients bag). I told him that if we smelled or saw him do anything more that was suspicious we would have to ask him to leave. The patient said he could not afford to be kicked out of the program, and that he had no one close to pick him up. The patient gave me his manager games and I gave it to Kaylynn BAINS charge nurse and let her know that I smelled the smoke, saw the butt and had Hang GRANDA in the room to corroborate the story. Hang GRANDA went into the bathroom and cleaned up the dirty items.
--- NOTE | 2018-02-08 06:43 | NURSING ---
pt resting quietly in bed at this time. nursing supv notified of pt smoking in his room through the night and need for haldol x2. primary r[place] [facility] [facility].
--- NOTE | 2018-02-08 08:54 | PN_ITS ---
Vitals/I&O's: Vital Signs Temp Pulse Resp BP Pulse Ox 98 F 119 H 18 139/92 H 98 02/08/18 03:41 02/08/18 03:41 02/08/18 03:41 02/08/18 03:41 02/07/18 21:03 Oxygen Delivery Method Room Air Weight: 74 kg Body Mass Index (BMI) 22.7 Intake and Output for Last 24 Hours 02/06/18 02/07/18 02/08/18 23:59 23:59 23:59 Intake Total 800 / 800 Output Total 200 / 200 Balance 600 / 600 Laboratory Results 02/07/18 17:35: Sodium 134 L, Potassium 4.1, Chloride 105, Carbon Dioxide 24.0, Anion Gap 5, BUN 12, Creatinine 0.84, Estim Creat Clear Calc 144.38, Est GFR ( MDRD) Af Amer 145, Est GFR (MDRD) Non-Af 120, BUN/Creatinine Ratio 14.2, Glucose 82, Calcium 12.0 H, Total Bilirubin 0.60, AST 21, ALT 34, Alkaline Phosphatase 120 H, Total Protein 8.7 H, Albumin 3.7, Globulin 5.0 H, Albumin/ Globulin Ratio 0.7 L 02/07/18 17:35: PTH Intact 161.4 H 02/07/18 17:35: HCV RNA Quant (PCR) Pending 02/07/18 22:50: Urine Opiates Screen NEGATIVE, Urine Methadone Screen NEGATIVE, Ur Barbiturates Screen NEGATIVE, Ur Phencyclidine Scrn NEGATIVE, Ur Amphetamines Screen NEGATIVE, U Methamphetamin-MDMA NEGATIVE, U Benzodiazepines Scrn NEGATIVE, Urine Cocaine Screen NEGATIVE, U Cannabinoids Screen NEGATIVE, Ur Drug Screen Comment Current Medications Buprenorphine HCl (Buprenorphine Hcl) 4 mg SL Q8H JANES PRN Reason: Taper Stop: 02/10/18 21:59 Last Admin: 02/08/18 01:01 Dose: 4 mg Chlordiazepoxide (Librium) 25 mg PO Q6H PRN PRN PRN Reason: Moderate-Severe Anxiety Last Admin: 02/08/18 01:46 Dose: 25 mg Clonidine (Catapres) 0.1 mg PO Q2H PRN PRN PRN Reason: Hot/Cold Sweats or Anxiety Last Admin: 02/08/18 03:40 Dose: 0.1 mg Dicyclomine HCl (Bentyl) 20 mg PO Q6H PRN PRN PRN Reason: Abdomnial Discomfort Last Admin: 02/07/18 22:51 Dose: 20 mg Hydroxyzine HCl (Vistaril Vial) 50 mg IM Q6H PRN PRN PRN Reason: Breakthrough Anxiety Hydroxyzine Pamoate (Vistaril Pamoate Capsule) 50 mg PO Q6H PRN PRN PRN Reason: Mild Anxiety Last Admin: 02/08/18 03:40 Dose: 50 mg Magnesium Hydroxide (Milk Of Magnesia) 30 ml PO DAILY PRN PRN PRN Reason: Constipation Methocarbamol (Methocarbamol) 750 mg PO Q6H PRN PRN PRN Reason: Muscle Aches Last Admin: 02/08/18 01:46 Dose: 750 mg Nicotine (Nicoderm Cq (Pbkc)) 14 mg TRANSDERM. DAILY JANES Last Admin: 02/07/18 20:54 Dose: 14 mg Ondansetron HCl (Zofran Odt) 4 mg PO Q6H PRN PRN PRN Reason: nausea/emesis Last Admin: 02/07/18 21:57 Dose: 4 mg Pramipexole Dihydrochloride (Mirapex) 0.25 mg PO Q12H PRN PRN PRN Reason: Restless Legs Last Admin: 02/07/18 18:17 Dose: 0.25 mg Trazodone HCl (Desyrel) 50 mg PO QHS JANES Last Admin: 02/07/18 21:57 Dose: 50 mg Medical Necessity - Tobacco Use Smoking Status: Current some day smoker Tobacco Use: Cigarettes Assessment/Plan All Active Problems Opiate withdrawal (Acute)
--- NOTE | 2018-02-08 09:04 | NURSING ---
Pt resting in bed, on camera being monitored. Lab into take blood specimen and he refused at this time stating that if tech can come back later he might be more ready to have lab draw. Later was up and walking in hallways with bags packed he was given AMA papers signed and pt was directed to the lobby.
--- NOTE | 2018-02-08 15:01 | DCINST_ITS ---
- Discharge Diagnoses Reason(s) for Visit for Discharge Instructions: Opiate withdrawal Allergies/Adverse Reactions: Allergies quetiapine [From Seroquel] Adverse Reaction (Verified 08/30/17 12:54) Other restless legs Medications to take at Discharge Ergocalciferol [Vitamin D] 50,000 unit PO Q7D 02/07/18 Primary Care Physician: Care Physician,No Primary [Primary Care Provider] - Test Results: Test results from this visit will be discussed in further detail at your follow- up appointment, if applicable.
--- NOTE | 2018-02-08 15:01 | PCM.DC.SUM ---
Discharge Date and Diagnosis Date of Admission: 02/07/18 Date of Discharge: 02/08/18 - Primary Discharge Diagnosis Acute opiate withdrawal - Secondary Discharge Diagnosis Chronic Problems Thyroid nodule (Chronic) Hyperthyroidism (Chronic) Heroin addiction (Chronic) Hypercalcemia (Chronic) Cigarette smoker (Chronic) Hospital Course and Treatment None Operations: None Procedures: None Summary of Care Provided: The patient is a 22 year old M with past medical history of opiate dependence comes in with acute opiate withdrawal symptoms for medical stabilization under the [facility] program. Patient was admitted to the medical floor, was seen smoking in the room, was agitated and confrontational with the nursing staff. Patient left against medical advice before being seen on the discharge date Discharge Diet: No Restrictions Discharge Activity: Return to Normal Activity Home Medications: Medications to take at Discharge Ergocalciferol [Vitamin D] 50,000 unit PO Q7D 02/07/18 Primary Care Physician: Care Physician,No Primary [Primary Care Provider] - Minutes spent on discharge:: 25 Patient Condition:: Stable Medical Necessity - Tobacco Use Smoking Status: Current some day smoker Tobacco Use: Cigarettes Meaningful Use Info Meaningful Use Diagnoses (Choose all that apply): None applicable Code Visit Inpatient E&M: 41333 Disch Hosp
--- NOTE | 2018-02-08 15:05 | DS.PCM_ITS ---
Discharge Date and Diagnosis Date of Admission: 02/07/18 Date of Discharge: 02/08/18 - Primary Discharge Diagnosis Acute opiate withdrawal - Secondary Discharge Diagnosis Chronic Problems Thyroid nodule (Chronic) Hyperthyroidism (Chronic) Heroin addiction (Chronic) Hypercalcemia (Chronic) Cigarette smoker (Chronic) Hospital Course and Treatment None Operations: None Procedures: None Summary of Care Provided: The patient is a 22 year old M with past medical history of opiate dependence comes in with acute opiate withdrawal symptoms for medical stabilization under the [facility] program. Patient was admitted to the medical floor, was seen smoking in the room, was agitated and confrontational with the nursing staff. Patient left against medical advice before being seen on the discharge date Discharge Diet: No Restrictions Discharge Activity: Return to Normal Activity Home Medications: Medications to take at Discharge Ergocalciferol [Vitamin D] 50,000 unit PO Q7D 02/07/18 Primary Care Physician: Care Physician,No Primary [Primary Care Provider] - Minutes spent on discharge:: 25 Patient Condition:: Stable Medical Necessity - Tobacco Use Smoking Status: Current some day smoker Tobacco Use: Cigarettes Meaningful Use Info Meaningful Use Diagnoses (Choose all that apply): None applicable Code Visit Inpatient E&M: 15362 Disch Hosp
== END 2018-02-08 09:00 | disposition left against medical advice (07) ==
PROVIDERS: Admitting Provider Student in an Organized Health Care Education/Training Program; Visit Provider Internal Medicine
DX: F11.23 Opioid dependence with withdrawal (principal); E83.52 Hypercalcemia; F17.210 Nicotine dependence, cigarettes, uncomplicated; E04.1 Nontoxic single thyroid nodule; Z86.19 Personal history of other infectious and parasitic diseases
CPT/HCPCS: 36415; 80053; 80307; 83970; 87522; 99218; G0378; G0379